=== PATIENT | female | born 1960 ===

== ENCOUNTER 2022-01-18 21:58 | Emergency (ER) | payer SELFPAY ==
[~2022-01-18] VITALS: Ht 175.3 cm; Wt 86.4 kg
[2022-01-18 23:18] LABS: BASOPHILS % (AUTO) 1.1 % (0.0-2.0); EOSINOPHILS % (AUTO) 1.6 % (1.0-6.0); HEMATOCRIT 38.2 % (36-46); HEMOGLOBIN 12.4 g/dL (12.0-16.0); LYMPHOCYTES # (AUTO) 3.1 K/uL (1.0-4.8); LYMPHOCYTES % (AUTO) 23.1 % (22.0-44.0); MEAN CORPUSCULAR HEMOGLOBIN 27.6 pg (26.0-34.0); MEAN CORPUSCULAR HGB CONC 32.3 G/dL (31.0-37.0); MEAN CORPUSCULAR VOLUME 85 fL (80-100); MONOCYTES # (AUTO) 1.3 K/uL (0.1-1.0); MONOCYTES % (AUTO) 9.3 % (2.0-9.0); NEUTROPHILS # (AUTO) 8.7 K/uL (1.8-7.7); NEUTROPHILS % (AUTO) 64.9 % (40.0-70.0); PLATELET COUNT (AUTO) 325 K/uL (150-450); RED BLOOD CELL COUNT(AUTO) 4.48 MIL/uL (4.00-5.20); RED CELL DISTRIBUTION WIDTH 13.9 % (11.5-14.5)
[2022-01-18 23:27] LABS: ANION GAP 10 mmol/L (8-16); CALCIUM, TOTAL 9.7 mg/dL (8.8-10.5); CARBON DIOXIDE 25 mmol/L (22-29); CHLORIDE 101 mmol/L (98-107); CREATININE 0.82 mg/dL (0.60-1.30); GLUCOSE,RANDOM 93 mg/dL (70-110); POTASSIUM 3.7 mmol/L (3.5-5.1); SODIUM SERUM 136 mmol/L (136-145); UREA NITROGEN, BLOOD 6 mg/dL (7-18)
[2022-01-18 23:28] LABS: GLOMERULAR FILTR. RATE CALC > 60 mL/min (>60)
[2022-01-18 23:33] LABS: ALANINE AMINOTRANSFERASE 26 U/L (12-78); ALKALINE PHOSPHATASE 143 U/L (46-116); ASPARTATE AMINOTRANSFERASE 117 U/L (15-37); BILIRUBIN,TOTAL 0.7 mg/dL (0.1-1.0); LIPASE 48 U/L (73-393); TOTAL PROTEIN, SERUM 7.5 g/dL (6.4-8.2)
[2022-01-19] MEDS ORDERED: KETOROLAC TROMETHAMINE 30 MG/ML VIAL IVP ONE (00:45)
[2022-01-19] MEDS ORDERED: SODIUM CHLORIDE 0.9% 1,000 ML IV ONE (00:45)
[2022-01-19] MEDS ORDERED: ONDANSETRON HCL 4 MG/2 ML VIAL IVP ONE (00:45)
[2022-01-19] MEDS ORDERED: MAG HYDROX/AL HYDROX/SIMETH 30 ML SUSP UDCUP PO ONE (00:45)
[2022-01-19] MEDS ORDERED: FAMOTIDINE 10 MG/ML 2 ML VIAL IVP ONE (00:45)
[2022-01-19] MEDS ORDERED: SODIUM CHLORIDE 0.9% 100 ML ONE (02:33)
[2022-01-19] MEDS ORDERED: IOHEXOL 350 MG/ML 100 ML VIAL ONE (02:34)
[2022-01-19 03:26] LABS: COVID AG,FIA SOURCE NASOPHARYNGEAL
[2022-01-19 03:30] LABS: APPEARANCE,URINE HAZY (CLEAR); BILIRUBIN,URINE NEGATIVE (NEGATIVE); GLUCOSE, URINE (UA) NEGATIVE (NEGATIVE); KETONES,URINE TRACE mg/dL (NEGATIVE); LEUKOCYTE ESTERASE ,URINE LARGE (NEGATIVE); NITRATE,URINE POSITIVE (NEGATIVE); OCCULT BLOOD,URINE TRACE (NEGATIVE); PH,URINE 6.5 (5.0-8.0); PROTEIN,URINE TRACE mg/dL (NEGATIVE); SPECIFIC GRAVITIY, URINE 1.013 (1.003-1.030); UROBILINOGEN,URINE <=1.0 mg/dL (<=1.0)
[2022-01-19 03:53] LABS: BACTERIA,URINE Many /HPF (None Seen); RBC,URINE 0-2 /HPF (0-2); SQUAMOUS EPITHELIAL CELL,UR Moderate /LPF (None Seen)
[2022-01-19] MEDS ORDERED: LEVO750T68 PO (05:14)
[2022-01-19] MEDS ORDERED: LEVOFLOXACIN 250 MG TABLET PO ONE (05:15)
[2022-01-19] MEDS ORDERED: LEVOFLOXACIN 750 MG/D5% WATER 150 ML IV ONE (05:15)
[2022-01-19 05:24] VITALS: BP 138/80
== END 2022-01-19 05:30 | disposition home or self-care (01) ==
LOC: EMS 22:08
DX: N12 Tubulo-interstitial nephritis, not specified as acute or chronic (principal); F17.210 Nicotine dependence, cigarettes, uncomplicated; I10 Essential (primary) hypertension; Z88.0 Allergy status to penicillin; Z91.013 Allergy to seafood; Z90.710 Acquired absence of both cervix and uterus; Z20.822 Contact with and (suspected) exposure to COVID-19
CPT/HCPCS: 99285; 87426; 80053; 81001; 83690; 85025; 36415; 87086; 74177; 96374; 96375; 96361; J3490; J1885; J2405; J1956; Q9967; J7030; J7050